=== PATIENT | female | born 1960 | race Caucasian/White ===

== ENCOUNTER 2016-06-09 16:20 | Emergency (ER) | payer OTHER ==
--- NOTE | ~2016-06-09 | CR211 ---
[facility] A Service of [facility] RADIOLOGY TEXT RESULTS PATIENT: IMELDA RODRIGUES LOCATION: [facility] : 60 UNIT #: [id number] AGE: [address]: Aide Wilder SEX: F ORDER DR: [id number] [facility] [address] [place], [place] [address] [id number] E MR#: [id number] Acc #: [id number] NAME: IMELDA RODRIGUES : 1960 SEX: F STUDY DATE/TIME: 06/09/2016 15:53 UNIT: [facility] ROOM: STUDY DESCRIPTION: CR Ribs Uni 2 View W PA Ch Rt Attending Physician: Aide Wilder P.A.-C. Ordering Physician: Aide Wilder P.A.-C. Primary Care Physician: Primary Care Physician No MEDICAL IMAGING REPORT This report is preliminary unless electronic signature is present EXAM Right rib series 06/09/2016 HISTORY Fall. Painful breathing. Bilateral hip pain. Bilateral lower extremity numbness and tingling. Fall down steps. TECHNIQUE AP radiograph of chest presented with AP and oblique views of the right ribs. FINDINGS Study is limited by poor radiographic technique and radiographic processing artifact overlying relevant anatomy on some images. No displaced rib fracture is seen. If the patient has ongoing symptoms, consider follow up imaging. The spinal structures seen on this examination are unremarkable. The heart and mediastinum are normal in size and contour. Lungs appear slightly hyperinflated. Correlate with any known history of underlying of chronic airway disease. There is some linear atelectasis or scarring at the lung bases, but no evidence of acute infectious or inflammatory disease. No pleural effusion or pneumothorax. No suspicious nodule. The visualized bowel gas pattern is normal. aortic atherosclerotic arterial calcifications are seen. Dictated by... Zac Barnett M.D. THIS IS AN ELECTRONICALLY VERIFIED REPORT Zac Barnett M.D. at 06/12/2016 6:09 PM JSK/to [facility] A Service of [facility] RADIOLOGY TEXT RESULTS PATIENT: IMELDA RODRIGUES [id number] : [birth year] UNIT #: [id number] AGE: [address]: Aide Wilder SEX: F ORDER DR: TD: 06/10/2016 12:04 JOB #: [id number] MEDICAL IMAGING REPORT Page 1 of 1 COPY
--- NOTE | ~2016-06-09 | CR181 ---
[facility] A Service of [facility] RADIOLOGY TEXT RESULTS PATIENT: IMELDA RODRIGUES LOCATION: [facility] : 60 UNIT #: [id number] AGE: [address]: Aide Wilder SEX: F ORDER DR: [id number] [facility] [address] [place], [place] [address] [id number] E MR#: [id number] Acc #: [id number] NAME: IMELDA RODRIGUES : 1960 SEX: F STUDY DATE/TIME: 06/09/2016 15:55 UNIT: [facility] ROOM: STUDY DESCRIPTION: CR Lumbar Spine 2 or 3 Views Attending Physician: Aide Wilder P.A.-C. Ordering Physician: Aide Wilder P.A.-C. Primary Care Physician: Primary Care Physician No MEDICAL IMAGING REPORT This report is preliminary unless electronic signature is present EXAM Lumbar spine series HISTORY Low-back pain after falling down the steps today, bilateral extremity numbness and tingling COMMENT AP lateral and lumbosacral views of the lumbar spine reviewed. COMPARISON [facility] FINDINGS Sagittal alignment is normal. Bones may be somewhat demineralized. Loss of intervertebral disc height present. Mild multiple levels and anterior plate spondylosis most apparent at L3-4. Facet arthritis most apparent L5-S1. No acute fracture or traumatic malalignment is suspected. Atherosclerotic vascular calcifications are present. IMPRESSION Lumbar degenerative changes but no acute fracture or traumatic malalignment suspected. Dictated by... Lulu Curiel M.D. THIS IS AN ELECTRONICALLY VERIFIED REPORT Lulu Curiel M.D. at 06/10/2016 3:08 PM SAC/to TD: 06/10/2016 11:47 JOB #: [id number] [facility] A Service [facility] RADIOLOGY TEXT RESULTS PATIENT: IMELDA RODRIGUES LOCATION: [facility] : 60 UNIT #: [id number] AGE: [address]: Aide Wilder SEX: F ORDER DR: MEDICAL IMAGING REPORT Page 1 of 1 COPY
--- NOTE | ~2016-06-09 | CR206 ---
[facility] A Service of [facility] RADIOLOGY TEXT RESULTS PATIENT: IMELDA RODRIGUES LOCATION: [facility] : 60 UNIT #: [id number] AGE: [address]: Aide Wilder SEX: F ORDER DR: [id number] [facility] [address] [place], [place] [address] [id number] E MR#: [id number] Acc #: [id number] NAME: IMELDA RODRIGUES : 1960 SEX: F STUDY DATE/TIME: 06/09/2016 15:56 UNIT: [facility] ROOM: STUDY DESCRIPTION: CR Pelvis 1 or 2 Views Attending Physician: Aide Wilder P.A.-C. Ordering Physician: Aide Wilder P.A.-C. Primary Care Physician: No Primary Care Physician MEDICAL IMAGING REPORT This report is preliminary unless electronic signature is present EXAM Pelvis 1 or 2 views HISTORY Painful breathing, bilateral hip pain, bilateral extremity numbness. Patient fell down stairs today. COMMENT A single frontal portable view of the pelvis timed 1556 on 06/09/2016 reviewed. The bones are demineralized. There is no acute fracture appreciated. Pelvis, lower sacrum obscured by bowel gas and stool. The hips are located and there is arthritis asymmetrically worse on the left than the right. If there is concern for the possibility of hip fracture, dedicated hip films should be obtained. This study is not performed to evaluate the hips well. IMPRESSION No pelvic fractures appreciated. Lower sacrum is obscured. Arthritis is noted in the bilateral hips, left greater than right. If there is concern for hip fracture, dedicated hip films should be obtained. This study does not exclude hip fracture. Dictated by... Lulu Curiel M.D. THIS IS AN ELECTRONICALLY VERIFIED REPORT Lulu Curiel M.D. at 06/10/2016 3:08 PM CITLALI/yumiko TD: 06/10/2016 12:41 [facility] A Service of [facility] RADIOLOGY TEXT RESULTS PATIENT: IMELDA RODRIGUES LOCATION: [facility] #: [id number] : 60 UNIT #: [id number] AGE: [address]: Aide Wilder SEX: F ORDER DR: JOB #: [id number] MEDICAL IMAGING REPORT Page 1 of 1 COPY
--- NOTE | ~2016-06-09 | CR243 ---
[facility] A Service [facility] RADIOLOGY TEXT RESULTS PATIENT: IMELDA RODRIGUES LOCATION: [facility] : 60 UNIT #: [id number] AGE: [address]: Aide Wilder SEX: F ORDER DR: [id number] [facility] [address] [place], [place] [address] [id number] E MR#: [id number] Acc #: [id number] NAME: IMELDA RODRIGUES : 1960 SEX: F STUDY DATE/TIME: 06/09/2016 15:54 UNIT: [facility] ROOM: STUDY DESCRIPTION: CR Thoracic Spine 3 Views Attending Physician: Aide Wilder P.A.-C. Ordering Physician: Aide Wilder P.A.-C. Primary Care Physician: Primary Care Physician No MEDICAL IMAGING REPORT This report is preliminary unless electronic signature is present EXAM Thoracic spine series 3 views HISTORY Painful breathing. Bilateral hip pain. Fell down the steps. Numbness and tingling in the lower extremities. Back pain. Mid and lower back pain. Bilateral lower extremity numbness and tingling. COMMENT AP, lateral and swimmer's views of the thoracic spine are viewed. COMPARISON There is a prior study from 04/10/2016 FINDINGS There is exaggeration of upper thoracic kyphosis with multiple level anterior endplate spondylosis. No acute fracture or traumatic malalignment is appreciated. IMPRESSION Thoracic degenerative changes, but no acute fracture or traumatic malalignment. Dictated by... Lulu Curiel M.D. THIS IS AN ELECTRONICALLY VERIFIED REPORT Lulu Curiel M.D. at 06/10/2016 3:08 PM SAC/to TD: 06/10/2016 11:44 [facility] A Service [facility] RADIOLOGY TEXT RESULTS PATIENT: IMELDA RODRIGUES LOCATION: [facility] : 60 UNIT #: [id number] AGE: [address]: Aide Wilder SEX: F ORDER DR: JOB #: [id number] MEDICAL IMAGING REPORT Page 1 of 1 COPY
[~2016-06-09 16:20] MED LIST: ALBUTEROL17 GM INH; ALBUTEROL20 ml; ALBUTEROL20 ml INH; AMITRIPTYLINE100 MG PO; AMITRYPTYLINE PO; AMOXICILLIN875 MG PO; ATENOLOL PO; BENZONATATE PO; CELEXA20 MG PO; CRESTOR40 MG PO; CYMBALTA PO; ECOTRIN325 MG; ECOTRIN81 M1 PO; FLEXERIL10 MG PO; GABAPENTIN600 MG PO; GLUCOPHAGE500 MG PO; HYDROCODON-ACE1 EAC7 PO; LOPID600 MG PO; MOBIC15 MG PO; NAPROSYN500 MG PO; NITROGLYGERIN0.4 MG SL; NITROQUICK0.4 MG SL; OCEAN45 ML; PHENERGAN PO; PRAVACHOL PO; RANITIDINE HCL300 M1; RANITIDINE HCL300 M1 PO; SYMBICORT80 INH; TIZANIDINE HCL4 M1 PO; VOLTAREN75 MG PO; XANAX0.5 MG PO; ZANAFLEX PO; ZANTAC300 MG PO; ZESTRIL40 MG PO; ZETIA PO; ZITHROMAX PO; ZITHROMAX1 G/PKT PO; [UNRECOGNIZED DRUG - OTHER] PO
[2016-07-03] MEDS ORDERED: CELEXA PO (12:39)
[2016-07-03] MEDS ORDERED: GLUCOPHAGE500 MG PO (12:40)
[2016-07-03] MEDS ORDERED: ZESTRIL40 MG PO (12:40)
[2016-07-03] MEDS ORDERED: AMITRIPTYLINE100 MG PO (12:40)
[2016-07-03] MEDS ORDERED: ZANTAC300 MG PO (12:40)
[2016-07-03] MEDS ORDERED: ZANAFLEX PO (12:41)
[2016-07-03] MEDS ORDERED: AMLODIPINE BESYL5 MG PO (12:41)
== END 2016-06-09 17:30 | disposition home or self-care (01) ==
LOC: CED 16:20
DX: S23.9XXA Sprain of unspecified parts of thorax, initial encounter (principal); S33.5XXA Sprain of ligaments of lumbar spine, initial encounter; I11.0 Hypertensive heart disease with heart failure; I50.9 Heart failure, unspecified; J44.9 Chronic obstructive pulmonary disease, unspecified; F41.9 Anxiety disorder, unspecified; E11.9 Type 2 diabetes mellitus without complications; F17.210 Nicotine dependence, cigarettes, uncomplicated; W10.9XXA Fall (on) (from) unspecified stairs and steps, initial encounter; Y92.009 Unspecified place in unspecified non-institutional (private) residence as the place of occurrence of the external cause
CPT/HCPCS: 71101; 72072; 72100; 72170; 96372; 99284; J1885

== ENCOUNTER 2016-07-03 12:56 | Emergency (ER) | payer OTHER ==
--- NOTE | ~2016-07-03 | EKG ---
PATIENT: IMELDA RODRIGUES UNIT #: [id number] Ventricular Rate: 98 BPM Atrial Rate: 98 BPM P-R Interval: 146 ms QRS Duration: 86 ms Q-T Interval: 356 ms QTC Calculation(Bezet): 454 ms P Gravel Switch: 65 degrees Calculated R Gravel Switch: 79 degrees Calculated T Gravel Switch: 49 degrees Diagnosis Line: Normal sinus rhythm Diagnosis Line: Normal ECG Diagnosis Line: When compared with ECG of 25-MAR-2015 10:12, Diagnosis Line: No significant change was found Diagnosis Line: Confirmed by MARYELLEN GAMING MD ([id number]) on 07/05/2016 Diagnosis Line: 12:01:49 PM INTERPRETING MD: AMBERLY GARIBAY
[~2016-07-03 12:56] MED LIST changes: +AMLODIPINE BESYL5 MG PO; +CELEXA PO
[2016-07-03 13:15] LABS: BASOPHIL# 0.1 X10e3 (0-0.3); HEMATOCRIT 37.7 % (35.0-45.0); LYMPHOCYTE# 3.7 X10e3 (1.0-3.5); NEUTROPHIL% 48.2 % (40-75)
[2016-07-03 13:18] LABS: BASOPHIL% 0.8 % (0-2.5); DIFF IND NO; EOSINOPHIL# 0.2 X10e3 (0-0.7); EOSINOPHIL% 1.8 % (0.0-7.0); HEMOGLOBIN 12.7 gm/dL (12.0-16.0); LYMPHOCYTE% 40.9 % (17.0-45.0); MEAN CELL VOLUME 91.2 FL (83-96); MEAN CORPUSCULAR HEMOGLOBIN 30.6 PG (28-34); MEAN CORPUSCULAR HGB CONC 33.6 g/dL (30-36); MEAN PLATELET VOLUME 8.2 FL (6.5-11.5); MONOCYTE# 0.8 X10e3 (0-1.0); MONOCYTE% 8.3 % (3.0-12.0); NEUTROPHIL# 4.4 X10e3 (1.5-7.1); PLATELET COUNT 240 X10e3 (140-420); RED BLOOD COUNT 4.13 X10e (3.90-5.30); RED CELL DISTRIBUTION WIDTH 13.9 % (11.0-15.5); WHITE BLOOD COUNT 9.1 X10e3 (4.0-10.5)
[2016-07-03 13:33] LABS: ALBUMIN SERUM 4.1 g/dL (3.5-5.0); ALKALINE PHOSPHATASE 100 U/L (32-92); ALT (SGPT) 19 U/L (10-40); AMYLASE 29 U/L (0-46); AST (SGOT) 19 U/L (10-42); BILIRUBIN,TOTAL 0.1 mg/dL (0.2-2.0); BLOOD UREA NITROGEN 18 mg/dL (9-23); CALCIUM SERUM 8.6 mg/dL (8.4-10.2); CARBON DIOXIDE 24 mmol/L (22-31); CHLORIDE 103 mmol/L (100-111); GLOM FILT RATE Estimated 63.4 mL/min (>60); GLUCOSE FASTING 98 mg/dL (70-110); LIPASE 44 U/L (22-51); POTASSIUM 3.6 mmol/L (3.5-5.1); PROTEIN TOTAL SERUM 7.1 g/dL (6.0-8.3); SODIUM 132 mmol/L (135-145)
[2016-07-03 13:42] LABS: BILIRUBIN, DIRECT <0.1 mg/dL (0.0-0.2)
== END 2016-07-03 14:18 | disposition home or self-care (01) ==
LOC: SED 12:56
PROVIDERS: Emergency Medicine
DX: K21.9 Gastro-esophageal reflux disease without esophagitis (principal); F17.200 Nicotine dependence, unspecified, uncomplicated; J44.9 Chronic obstructive pulmonary disease, unspecified; F41.9 Anxiety disorder, unspecified
CPT/HCPCS: 36415; 80048; 80076; 82150; 83690; 85025; 86677; 93005; 96374; 96375; 99284; C9113; J2405

== ENCOUNTER 2016-08-29 08:56 | Inpatient (IN) | payer OTHER ==
--- NOTE | ~2016-08-29 | DS ---
Unit #: [id number] #: [id number] Patient: IMELDA RODRIGUES [id number] [address] [address] [id number] I MR#: [id number] NAME: IMELDA RODRIGUES ROOM: 571 Age: 55 Sex: F Admission Date: 08/29/2016 : 1960 Discharge Date: 09/01/2016 Attending Physician: Medina Weldon M.D. Primary Care Physician: Royer Clarke M.D. DISCHARGE SUMMARY DIAGNOSIS ON ADMISSION Acute biliary cholic. DIAGNOSES ON DISCHARGE 1. Acute cholecystitis status post laparoscopic cholecystectomy. 2. Choledocholithiasis status post stone extraction via endoscopic retrograde cholangiopancreatography. 3. Hypertension. 4. Type 2 diabetes mellitus. 5. Coronary artery disease. 6. Acute pancreatitis, improved. 7. Chronic obstructive pulmonary disease. 8. Hyperlipidemia. 9. Anxiety disorder. 10. Depression. 11. Acute Escherichia coli urinary tract infection. CONSULTATIONS 1. Dr. Coronel in GI consultation. 2. Dr. Rondon and in surgical consultation. PROCEDURES DONE The patient had an ERCP done, which revealed on EGD mild esophagitis, small hiatal hernia. The patient had significantly dilated biliary duct, which was filled up with large stones, and a sphincterotomy was performed and several stones were extracted using lithotripsy. DIAGNOSTIC STUDIES LABS: The patient's creatinine is 0.6, sodium 140, potassium 4.2. The patient's AST is 33. ALT is 134. Amylase is 299, and lipase is 294, which is better than yesterday. The patient's WBC is 9.3, hemoglobin 12.6, platelet count 199. Urine culture revealed acute E-coli. The patient's troponin was negative. CARDIOVASCULAR: The patient had a two-D echocardiogram done, which revealed ejection fraction of 55%, and there was mild tricuspid regurgitation present. HOSPITAL COURSE This 55-year-old female was admitted to [facility] with abdominal pain. Details are as per admission H and P. Common bile duct stones. The patient was seen by Dr. Coronel in consultation who saw the patient in consultation and performed an ERCP and removed Unit #: [id number] #: [id number] Patient: IMELDA RODRIGUES stones using lithotripsy. Acute cholecystitis. The patient had laparoscopic cholecystectomy done, which she tolerated well. Acute E-coli UTI. The patient was treated with antibiotics. PHYSICAL EXAMINATION GENERAL: Today, the patient is comfortable, feels better, wants to go home. VITAL SIGNS: Vital signs reveal temperature of 98.6, pulse 68 per minute, respiratory rate 16 per minute and blood pressure 133/65. HEENT: Examination revealed no conjunctival congestion. Sclera is nonicteric. NECK: Neck is supple. Trachea is central. RESPIRATORY: Examination revealed breath sounds equal bilaterally. There are no wheezes or crackles. HEART: Regular rate and rhythm. S1, S2. ABDOMEN: Abdomen is soft. There is mild tenderness present. Bowel sounds are present. SKIN: Skin is warm and dry. RECOMMENDATIONS ON DISCHARGE 1. Condition is stable. 2. Activity is as tolerated. DISCHARGE MEDICATIONS 1. Amitriptyline 100 mg p.o. q.h.s. The patient wants to continue it. It is a home medication. 2. Celexa 20 mg p.o. daily. 3. Glucophage 500 mg p.o. daily. The patient was advised to restart in 3 days. 4. Norvasc 5 mg p.o. daily. 5. Lisinopril 40 mg p.o. daily. 6. Zantac 300 mg p.o. b.i.d. 7. Zanaflex 4 mg p.o. t.i.d. p.r.n. 8. Omnicef 300 mg p.o. b.i.d. for 5 days for UTI. 9. Hydrocodone/[place] 5/325 mg 1 p.o. q.8 hours p.r.n. pain (#15 were written). PLAN/FOLLOWUP 1. The patient is advised to follow up with primary care physician in 1 week. 2. The patient is advised to follow up with Dr. Coronel and Dr. Minor as recommended. 3. The plan was discussed with Dr. Coronel who recommended patient should follow up with him in 2 weeks. 4. The patient is advised to follow up with [facility] in 1-2 weeks. 5. The patient was advised to call primary care physician or go to ER if her condition changes. NOTE: The plan was discussed in detail with the patient and family, and they showed complete understanding. Dictated by... Unit #: [id number] #: [id number] Patient: IMELDA RODRIGUES M.D. MB/db TD: 09/01/2016 11:35 JOB #: [id number] CC: Ross Coronel M.D. DISCHARGE SUMMARY Page 1 of 1 X Medina Weldon MD X DISCHARGE SUMMARY
--- NOTE | ~2016-08-29 | EKG ---
PATIENT: IMELDA RODRIGUES UNIT #: [id number] Ventricular Rate: 70 BPM Atrial Rate: 70 BPM P-R Interval: 154 ms QRS Duration: 86 ms Q-T Interval: 384 ms QTC Calculation(Bezet): 414 ms P [place]: 71 degrees Calculated R [place]: 86 degrees Calculated T [place]: 46 degrees Diagnosis Line: Normal sinus rhythm Diagnosis Line: Normal ECG Diagnosis Line: When compared with ECG of 29-AUG-2016 09:27, Diagnosis Line: No significant change was found Diagnosis Line: Confirmed by JUSTIN CONTRERAS MD ([id number]) on Diagnosis Line: 09/01/2016 2:50:59 PM INTERPRETING MD: JUNIOR
--- NOTE | ~2016-08-29 | CO ---
Unit #: [id number] #: [id number] Patient: IMELDA LOYOLA [id number] [address] [place], [place] [address] [id number] Juliana MR#: [id number] NAME: IMELDA LOYOLA. ROOM: 571 Age: 55 Sex: F Admission Date: 08/29/2016 : 1960 Attending Physician: Medina Weldon M.D. Primary Care Physician: Royer Clarke M.D. Consultation Date: 08/30/2016 CONSULTATION REPORT REASON FOR CONSULTATION Choledocholithiasis. HISTORY OF PRESENTING ILLNESS Ms. Loyola is a 55-year-old pleasant lady, was admitted with complaints of pain in the right flank and right back. It started yesterday, which is severe, associated with nausea and vomiting. No fever. No chills. She has not had similar pain in the past. She denies any injuries. Initial lab work shows abnormal LFTs. CT scan shows bile duct stones as well as gallbladder stones along with dilated bile duct. I was consulted for possible ERCP. PAST MEDICAL HISTORY Significant for type 2 diabetes mellitus, hypertension, coronary artery disease, and COPD. SOCIAL HISTORY Smoker. Denies alcohol. FAMILY HISTORY No history of colon cancer. ALLERGIES None. MEDICATIONS Medications at home include Celexa, lisinopril,Glucophage, Zantac, Elavil, Zanaflex, and Norvasc. REVIEW OF SYSTEMS Complete 10-point review of systems was done, which is unremarkable other than as mentioned above. PHYSICAL EXAMINATION VITAL SIGNS: Stable. Afebrile. Mild pain. Temperature 98.3, pulse 117, respirations 18, and blood pressure 127/81. HEENT: Pupils are equal and reactive. No icterus. Oral mucosa moist. NECK: No JVD. No lymphadenopathy. CHEST: Clear to auscultation bilaterally. CARDIOVASCULAR: Regular rate and rhythm. No murmurs. ABDOMEN: Mildly tender in the right upper quadrant and right flank area. No guarding. No rebound. EXTREMITIES: Without clubbing, cyanosis, or edema. NEUROLOGIC: Intact. Unit #: [id number] #: [id number] Patient: IMELDA LOYOLA SKIN: Warm and dry. DIAGNOSTIC STUDIES White count is normal. CBC unremarkable otherwise. Chemistries showed a sodium of 132, AST of 302, ALT of 362, and alkaline phosphatase elevated at 380. Bilirubin was normal. Amylase and lipase were normal. CT scan shows evidence of gallbladder stones as was bile duct stones. Bile duct was dilated at 1.6 cm on the ultrasound. ASSESSMENT AND PLAN The patient with biliary ductal stones along with dilated duct, suggest obstruction. Normal LFTs consistent with the same. She will need an ERCP and removal of the stones. Afterwards, she will need laparoscopic cholecystectomy. I discussed at length with the procedure with her along with complication including pancreatitis. She is agreeable and wants to ahead. I discussed the case also with Dr. Marroquin and she was okay for me to proceed with the procedure. In the meantime, we are going to keep her on IV antibiotics and IV fluids as well as pain medications for symptomatic control. Thank you, Dr. Adler, for this interesting consult. We will follow along. Dictated by... Gemini Butterfield/yadi TD: 08/30/2016 19:07 JOB #: [id number] CONSULTATION REPORT Page 1 of 1 X Ross Coronel MD X CONSULTATION REPORT
--- NOTE | ~2016-08-29 | OR ---
Unit #: [id number] #: [id number] Patient: IMELDA RODRIGUES [id number] [address] [place], [place] [address] [id number] Juliana MR#: [id number] NAME: IMELDA RODRIGUES. ROOM: 571 Date of Procedure: 08/31/2016 Admission Date: 08/29/2016 Surgeon: Pepe Minor III, M.D. : 1960 Attending Physician: Medina Weldon M.D. Primary Care Physician: Royer Clarke M.D. OPERATIVE REPORT PREOPERATIVE DIAGNOSES History of common bile duct stones and chronic cholecystitis with gallstones. POSTOPERATIVE DIAGNOSES History of common bile duct stones and chronic cholecystitis with gallstones. PROCEDURE PERFORMED Laparoscopic cholecystectomy. ANESTHESIA General. SPECIMENS Gallbladder to Pathology. COMPLICATIONS None apparent. ESTIMATED BLOOD LOSS Minimal. INDICATIONS FOR PROCEDURE This is a 55-year-old lady, who has a history of choledocholithiasis and underwent ERCP yesterday with stent placement and removal of stones. She is here today for laparoscopic cholecystectomy. DESCRIPTION OF PROCEDURE After consent was obtained, the patient was brought to the operating room and placed in the supine position. General anesthetic was administered and her abdomen was prepped and draped in standard surgical fashion. I made a 5-mm incision in the right upper quadrant. I used an Optiview to enter into the peritoneal cavity without any difficulty. CO2 pneumoperitoneum was then established. Next, a second 5-mm port was placed in the infraumbilical region and an 11-mm port was placed in the epigastric region and a third 5-mm port was placed in the right lateral subcostal region. I began by retracting the gallbladder superiorly and laterally. I was able to dissect out the cystic duct which was grossly enlarged. It was over a centimeter in diameter. Once I had this confirmed and fully dissected out, I did realize that there was no way a clip was going to go across there. I replaced the 11-mm port with a 12-mm Unit #: [id number] #: [id number] Patient: IMELDA RODRIGUES port and used a laparoscopic LEILANI stapler to divide the cystic duct. Again, I was confident this was a cystic duct, because of her history of a dilated common bile duct and the fact that she had a stent across the common bile duct as well. Once the cystic duct was divided, I then ligated the cystic artery and took the gallbladder off the liver bed without any spillage of bile. The gallbladder was extracted through the epigastric port site without dilatation of the fascia. I had excellent hemostasis and all needle, sponge, and instrument counts were correct x2. I then used a neoClose device to reapproximate the fascia at the epigastric port site and all the incisions were injected with 0.25% plain Marcaine. The ports were removed. Pneumoperitoneum was released and the incisions were reapproximated with interrupted 4-0 Vicryl subcuticular suture. Steri-Strips were then applied. The patient tolerated the procedure without any problems and returned to the recovery room in stable condition. Dictated by... Pepe Minor III, M.D. VCL/yadi TD: 08/31/2016 15:45 JOB #: [id number] OPERATIVE REPORT Page 1 of 1 X Pepe Minor III, MD PROCEDURE OPERATIVE NOTE
--- NOTE | ~2016-08-29 | CO ---
Unit #: [id number] #: [id number] Patient: IMELDA RODRIGUES [id number] [facility]. [address] [place], [place] [address] [id number] MR#: [id number] NAME: IMELDA RODRIGUES. ROOM: 571 Age: 55 Sex: F Admission Date: 08/29/2016 : 1960 Attending Physician: Medina Weldon M.D. Primary Care Physician: Royer Clarke M.D. Consultation Date: 08/30/2016 CONSULTATION REPORT REASON FOR CONSULTATION Coronary artery disease. HISTORY OF PRESENT ILLNESS This is a 55-year-old female, seen in the past by Dr. Cazares when she underwent a cardiac cath in 2007, which showed single vessel coronary artery disease at posterior LV branch, 95% occlusion, RCA 20% to 30%, and normal left main LAD and circumflex artery. She also has a history of diabetes mellitus, hypertension, hyperlipidemia, unstable angina, COPD, anxiety, depression, and tobacco abuse. She was at work yesterday when she experienced severe stabbing right flank pain. She presented to the ER and was found to have elevated LFTs. After multiple imaging studies, she was found to have common bile duct stones and cholecystitis. She reports frequent exertional chest discomfort occurring one or two times a month. She has sharp pains in her left chest with dizziness that are aggravated by anxiety or activity. They resolved with rest and nitroglycerin. She currently is chest pain free. PAST MEDICAL HISTORY 1. Single vessel coronary artery disease, posterior LV branch. 2. Cardiac cath in 2007 showed posterior LV branch 95% at origin with distal normal, RCA 20% to 30%, left main normal, LAD normal, left circumflex normal. 3. Abnormal Cardiolite exercise stress test in 2007. 4. Diabetes. 5. Hypertension. 6. Hyperlipidemia. 7. COPD. 8. Anxiety. 9. Depression. 10. Tobacco abuse. PAST SURGICAL HISTORY She had a hysterectomy, x4, and sinus surgery. FAMILY HISTORY Denies family history of premature coronary artery disease. SOCIAL HISTORY She denies alcohol or illicit drug use. She smokes 2 to 3 cigarettes per day since she was 7 years old. Unit #: [id number] #: [id number] Patient: IMELDA RODRIGUES ALLERGIES No known drug allergies. HOME MEDICATIONS 1. Celexa 20 mg p.o. daily. 2. Zestril 40 mg p.o. daily. 3. Glucophage 500 mg p.o. daily. 4. Zantac 300 mg p.o. twice a day. 5. Amitriptyline 100 mg p.o. daily. 6. Zanaflex 4 mg p.o. three times a day as needed for muscle spasm. 7. Amlodipine 5 mg p.o. daily. REVIEW OF SYSTEMS Positive for intermittent left chest pain, dizziness, anxiety, and right flank pain. Otherwise negative except for what was stated in HPI. PHYSICAL EXAMINATION VITAL SIGNS: Temperature 98.2, heart rate 79, respiratory rate 18, blood pressure 126/68, height 67 inches, and weight 87 kg. GENERAL: This is a 55-year-old female, resting in bed, in no acute distress. HEENT: Head is atraumatic and normocephalic. Pupils are equal and round. Mucous membranes are moist. NECK: Supple. Trachea is midline. Negative for JVD. LUNGS: Clear to auscultation. Nonlabored respirations. CARDIOVASCULAR: S1 and S2. Regular rate and rhythm. No significant murmurs, rubs, or gallops. ABDOMEN: Soft, nontender, and nondistended. EXTREMITIES: Pulses are palpable. No pedal edema. No cyanosis. NEUROLOGIC: Alert and oriented x3. Moves all extremities equally and follows commands without difficulty. DIAGNOSTIC STUDIES LABORATORY RESULTS: Sodium 140, potassium 4.3, chloride 111, BUN 10, creatinine 0.7, glucose 90, AST 113, ALT 257, alk phos 298, amylase 23, lipase 19. Hemoglobin 12.9, hematocrit 39.3, platelets 197, and white blood cell count 5.3. Point of care troponin is less than 0.05. PT 11, INR 1, and PTT 23.3. IMAGING STUDIES: CT of the abdomen and pelvis showed cholelithiasis with distention of gallbladder. Ultrasound of the gallbladder showed multiple stones in the common bile duct with common hepatic duct dilation, and cholelithiasis. CT of the chest showed no pulmonary embolism. Small pleb seen at right apex and mild basilar fibrosis or atelectasis. CARDIOVASCULAR STUDIES: EKG shows normal sinus rhythm with ventricular rate of 90 and nonspecific T-wave abnormalities. ASSESSMENT 1. Common bile duct stones. 2. Cholecystitis. 3. Angina pectoris. 4. Single vessel coronary artery disease at posterior LV branch. 5. Diabetes mellitus. 6. Hypertension. Unit #: [id number] #: [id number] Patient: IMELDA RODRIGUES 7. Hyperlipidemia. 8. Chronic obstructive pulmonary disease. 9. Anxiety and depression. 10. Tobacco abuse. PLAN 1. We will start beta-yissel. Discontinue calcium channel yissel and YULIANA. Obtain 2D echo stat. 2. Discuss with Dr. Marroquin and discuss with Dr. Coronel. This patient needs ERCP stat. We will clear the patient for the procedure at moderate, but acceptable risk. Discuss cardiac risk with the patient. 3. Plan for further ischemic workup once recovered. Thank you for asking us to see this patient. We appreciate the consult. Dictated by... Sheyla Moulton APRN for [facility] Meredith/yadi TD: 08/31/2016 11:10 JOB #: [id number] CONSULTATION REPORT Page 1 of 1 X X CONSULTATION REPORT
--- NOTE | ~2016-08-29 | CR84 ---
[facility] A Service of [facility] & [facility] RADIOLOGY TEXT RESULTS PATIENT: IMELDA RODRIGUES LOCATION: [facility] 57- : 60 UNIT #: [id number] AGE: [address]: Medina Weldon MD SEX: F ORDER DR: [id number] [facility] [address] [facility] [facility]. [place], [place] [address] [id number] MR#: [id number] Acc #: [id number] NAME: IMELDA RODRIGUES : 1960 SEX: F STUDY DATE/TIME: 08/30/2016 10:21 UNIT: [facility] ROOM: [facility] STUDY DESCRIPTION: CR ERCP Biliary and Pancr SI Attending Physician: Medina Weldon M.D. Ordering Physician: Ross Coronel M.D. Primary Care Physician: Royer Clarke M.D. MEDICAL IMAGING REPORT This report is preliminary unless electronic signature is present EXAM ERCP HISTORY Common bile duct stones. TECHNIQUE A total of 8 overhead spot films were obtained documenting retrograde injection of the pancreatic duct and common bile duct. Fluoroscopy time documented at 17.5 minutes. Please see the endoscopist notes for full details of the procedure. Dictated by... Zachary Rodrigues M.D. THIS IS AN ELECTRONICALLY VERIFIED REPORT Zachary Rodrigues M.D. at 09/05/2016 7:10 AM RLF/jori TD: 08/30/2016 23:06 JOB #: [id number] MEDICAL IMAGING REPORT Page 1 of 1 COPY
--- NOTE | ~2016-08-29 | CT4 ---
[facility] A Service of [facility] & [facility] RADIOLOGY TEXT RESULTS PATIENT: IMELDA RODRIGUES LOCATION: [place] [address] : 60 UNIT #: [id number] AGE: [address]: Medina Weldon MD SEX: F ORDER DR: [id number] [address] [address] [id number] E MR#: [id number] Acc #: [id number] NAME: IMELDA RODRIGUES : 1960 SEX: F STUDY DATE/TIME: 08/29/2016 9:42 UNIT: SED ROOM: STUDY DESCRIPTION: CT Abd and Pelv Wo Cont Attending Physician: Remy Burnette M.D. Ordering Physician: Remy Burnette M.D. Primary Care Physician: Royer Clarke M.D. MEDICAL IMAGING REPORT This report is preliminary unless electronic signature is present. EXAM CT of the abdomen pelvis without contrast media. HISTORY Right flank, right upper quadrant pain beginning this morning. TECHNIQUE Axial imaging of the abdomen and pelvis was performed without contrast media. This CT exam was performed with one or more of the following radiation dose reduction techniques: Automatic exposure control, adjustment of mA and/or kV according to patient size, and iterative reconstruction. FINDINGS Scans through the lung bases show underlying COPD. Scans through the liver parenchyma are normal. Spleen is normal. There are multiple gallstones within the gallbladder. Pancreas is normal. Adrenal glands are normal. The right kidney is normal with no hydronephrosis or hydroureter. On the left, there is an exophytic left renal lesion measuring 1.6 cm in diameter consistent with a simple cyst. There is no evidence of renal stones or hydronephrosis. No dilated or thickened loops of bowel are identified. The adrenal glands are normal. There is atherosclerotic disease in the aorta and iliac vessels. The appendix is not identified and may have been removed. The patient has had a hysterectomy. No pelvic masses or fluid collections are seen. CONCLUSION 1. Cholelithiasis with distension of the gallbladder. 2. Incidental 1.6 cm left renal cyst. 3. Postop changes of hysterectomy and likely appendectomy. 4. No acute findings. 1. [facility]. [facility] A Service of [facility] & [facility] RADIOLOGY TEXT RESULTS PATIENT: IMELDA RODRIGUES LOCATION: [facility] 571-01 : 60 UNIT #: [id number] AGE: [address]: Medina Weldon MD SEX: F ORDER DR: Dictated by... Zac Felipe M.D. THIS IS AN ELECTRONICALLY VERIFIED REPORT Zac Felipe M.D. at 08/30/2016 3:21 PM QIAN/joyce TD: 08/29/2016 12:30 JOB #: [id number] MEDICAL IMAGING REPORT Page 1 of 1
--- NOTE | ~2016-08-29 | EKG ---
PATIENT: IMELDA RODRIGUES UNIT #: [id number] Ventricular Rate: 90 BPM Atrial Rate: 90 BPM P-R Interval: 136 ms QRS Duration: 76 ms Q-T Interval: 348 ms QTC Calculation(Bezet): 425 ms P [place]: 81 degrees Calculated R [place]: 84 degrees Calculated T [place]: 58 degrees Diagnosis Line: Normal sinus rhythm Diagnosis Line: Normal ECG Diagnosis Line: When compared with ECG of 03-JUL-2016 12:48, Diagnosis Line: No significant change was found Diagnosis Line: Confirmed by EVELIO BURNETTE MD ([id number]) on Diagnosis Line: 08/30/2016 4:45:56 PM INTERPRETING MD: YOMAIRA GARIBAY
--- NOTE | ~2016-08-29 | CO ---
Unit #: [id number] #: [id number] Patient: IMELDA RODRIGUES [id number] [address] [place], [place] [address] [id number] I MR#: [id number] NAME: IMELDA RODRIGUES. ROOM: 571 Age: 55 Sex: F Admission Date: 08/29/2016 : 1960 Attending Physician: Medina Weldon M.D. Primary Care Physician: Royer Clarke M.D. Consultation Date: 08/30/2016 CONSULTATION REPORT CHIEF COMPLAINT Right flank pain. HISTORY OF PRESENT ILLNESS This is a 55-year-old lady, who has had sudden onset of acute right flank and back pain that started 24 hours ago. It was a 10/10 at that time. It was associated with nausea, but no vomiting. She has not had any prior episodes. PAST MEDICAL HISTORY Significant for coronary artery disease, congestive heart failure, COPD, depression, and diabetes. MEDICATIONS Please see med rec list for list of medications. PAST SURGICAL HISTORY She has undergone five C-sections, hysterectomy, and sinus surgery. ALLERGIES She has no known drug allergies. SOCIAL HISTORY She does smoke. She denies any alcohol use. FAMILY HISTORY Significant for colon cancer in her mom and dad. REVIEW OF SYSTEMS Negative for fevers, weight loss, or jaundice and is otherwise as above. PHYSICAL EXAMINATION VITAL SIGNS: Temperature is 98.2, heart rate 79, respiratory rate is 18, blood pressure is 126/68. BMI is 28. GENERAL: She is in no acute distress. HEENT: Pupils are equal and reactive to light and accommodation. Her extraocular muscles are intact. NECK: Without masses or bruits. LUNGS: Show good breath sounds bilaterally with equal air exchange. CARDIAC: Shows regular rate and rhythm without murmur. ABDOMEN: Soft, nontender, nondistended with no organomegaly. EXTREMITIES: Without edema or cyanosis. NEUROLOGIC: She is alert and oriented. There are no focal deficits. Unit #: [id number] #: [id number] Patient: IMELDA RODRIGUES DIAGNOSTIC STUDIES LABORATORY RESULTS: White blood count is normal, hemoglobin is 12.9. Total bilirubin is 0.8, but she has elevation of her alkaline phosphatase at 380, AST is 302, and ALT is 362. IMAGING STUDIES: CT scan showed gallstones and ultrasound of the gallbladder showed multiple stones in the common bile duct with dilatation up to 1.6 cm and mild gallbladder wall thickening. OVERALL IMPRESSION This is a 55-year-old lady, who has common bile duct stones with cholecystitis. Hopefully, she will undergo endoscopic retrograde cholangiopancreatography today and laparoscopic cholecystectomy in the morning. Gastrointestinal has already been consulted and Cardiology has also been seen for preoperative clearance. Dictated by... Pepe Minor III, M.D. VCL/yadi TD: 09/27/2016 01:52 JOB #: [id number] CONSULTATION REPORT Page 1 of 1 X Pepe Minor III, MD CONSULTATION REPORT
--- NOTE | ~2016-08-29 | HP ---
Unit #: [id number] #: [id number] Patient: IMELDA RODRIGUES [id number] [address] [place], [place] [address] [id number] I MR#: [id number] NAME: IMELDA RODRIGUES. ROOM: 571 Age: 55 Sex: F Admission Date: 08/29/2016 : 1960 Attending Physician: Vania Benitez M.D. Primary Care Physician: Royer Clarke M.D. HISTORY AND PHYSICAL CHIEF COMPLAINT Choledocholithiasis and cholecystitis. HISTORY OF PRESENT ILLNESS This 55-year-old female with hypertension, AODM, CAD, COPD, was transferred from [facility] Emergency Department for right flank pain, and found to have choledocholithiasis and cholecystitis. The patient was well until this morning when she began to experience intractable right flank pain with a somewhat pleuritic component. Denies other symptoms with the above. She went to [facility] ER around 9 a.m. this morning and LFT's were noted to be elevated. Multiple imaging studies were performed, and the patient was found to have cholelithiasis with distension of the gallbladder on CT scan. an ultrasound was performed showing multiple stones in the common bile duct along with cholelithiasis. The gallbladder was mildly thickened, possibly representing acute versus chronic cholecystitis. In the ER the patient was bolused with IV fluids, given Toradol, Zofran, Dilaudid and Zosyn. She currently is experience quite a bit of right flank pain. PAST MEDICAL HISTORY 1. GERD. 2. AODM. 3. Hypertension. 4. COPD. 5. Anxiety and depression. 6. Insomnia. 7. Hyperlipidemia. 8. CAD. Cardiac catheterization 2007 revealed 20% to 30% RCA lesion. Posterior left ventricular branch was 95% occluded. The patient states that she requires Nitroglycerine about twice a month for chest pain. She has poor exercising capability and is unable to climb flights of stairs due to shortness of breath. 9. Five C0-sections. 10. Hysterectomy. 11. Sinus surgery. SOCIAL HISTORY The patient lives alone. She smokes 3 to 4 cigarettes on a daily basis, does not drink alcohol. FAMILY HISTORY Hypertension CAD Unit #: [id number] #: [id number] Patient: IMELDA RODRIGUES Diabetes mellitus. ALLERGIES No known drug allergies. MEDICATIONS Celexa 20 mg daily. Lisinopril 40 mg daily. Glucophage 500 mg daily. Zantac 300 mg b.i.d. Elavil 100 mg q h.s. Zanaflex 4 mg t.i.d. Norvasc 5 mg daily. REVIEW OF SYSTEMS Notable for right flank pain, GERD, AODM, hypertension, COPD, tobacco use, anxiety, depression, hyperlipidemia, CAD, diabetes, above mentioned surgeries. All other systems were reviewed and are otherwise negative. PHYSICAL EXAMINATION GENERAL APPEARANCE: Pleasant uncomfortable appearing mildly obese 55-year-old female. VITAL SIGNS: Temp 98.3, pulse 117, respirations 18, B/P 127/81. HEENT: Eyes - PERRLA, extraocular movements intact. Pharynx is benign. Dentures are in place. NECK: Neck is supple without adenopathy or thyromegaly. CHEST: Chest is clear. Back with right CVA percussion tenderness. HEART: Normal S1 and S2, soft systolic murmur. ABDOMEN: Bowel sounds are present. Epigastric tenderness noted on exam. No masses or hepatosplenomegaly. EXTREMITIES: Without CC or E. Pedal pulses are somewhat diminished. NEUROLOGIC: The patient is awake, alert, oriented. Cranial nerves are intact, equal strength throughout. DIAGNOSTIC STUDIES LABORATORY: Hematocrit 41.9, normal white count, platelet count. SMA 12 - sodium 132, C02 of 20, AST of 302, ALT 362, alkaline phos 380 with a normal bilirubin. Normal lipase. D-dimer mildly elevated at 250. Urinalysis, leukocyte esterase and blood positive with 10 to 25 white cells, 1+ bacteria. A few squamous cells seen. IMAGING: CT scan shows cholelithiasis with distension of the gallbladder, left renal cyst, postop changes of hysterectomy and likely appendectomy. Gallbladder ultrasound - multiple stones within the common bile duct with common bile duct dilatation of 1.6 cm. Cholelithiasis. Gallbladder wall is mildly thickened which could represent acute or chronic cholecystitis. CTA of the chest negative for PE. Small blebs seen at the right apex, mild basilar fibrosis or atelectasis noted. CARDIOVASCULAR: EKG - normal sinus rhythm, rate 90, normal appearing. ASSESSMENT 1. Choledocholithiasis with cholecystitis either acute or chronic. 2. COPD. 3. CAD. 4. Hypertension. 5. AODM. 6. Major depressive disorder. Unit #: [id number] #: [id number] Patient: IMELDA RODRIGUES 7. Possible UTI. PLAN 1. Continue Zosyn. 2. IV fluids and supportive treatment. 3. Sliding scale insulin and hold Glucophage. 4. Low dose Nitro paste and ask cardiology to follow as the patient will need an ERCP and possibly cholecystectomy. 5. and [facility] to see. 6. SCDs for DVT prophylaxis. Dictated by Gemini Mayes/sheeba TD: 08/29/2016 23:26 JOB #: [id number] HISTORY AND PHYSICAL Page 1 of 1 X Ada Adler MD X HISTORY AND PHYSICAL
--- NOTE | ~2016-08-29 | US67 ---
[facility] A Service [facility] RADIOLOGY TEXT RESULTS PATIENT: IMELDA RODRIGUES LOCATION: [place] [address] : 60 UNIT #: [id number] AGE: [address]: Medina Welodn MD SEX: F ORDER DR: [id number] [address] [address] [id number] E MR#: [id number] Acc #: [id number] NAME: IMELDA RODRIGUES : 1960 SEX: F STUDY DATE/TIME: 08/29/2016 10:18 UNIT: SED ROOM: STUDY DESCRIPTION: US Gallbladder Attending Physician: Remy Burnette M.D. Ordering Physician: Remy Burnette M.D. Primary Care Physician: Royer Clarke M.D. MEDICAL IMAGING REPORT This report is preliminary unless electronic signature is present. EXAM Gallbladder ultrasound DATE 08/29/2016 HISTORY Right back pain today, worse since this morning. COMPARISON CT abdomen and pelvis without contrast 08/29/2016 FINDINGS The pancreas has an unremarkable sonographic appearance. Liver size is normal, 17.7 cm, with homogeneous echotexture and without focal or suspicious abnormality. Intrahepatic IVC has a normal singh-scale appearance. No ascites is identified. Right kidney measures 10.1 cm in length without focal cortical lesion, shadowing stone or hydronephrosis. Multiple echogenic shadowing gallstones are present. The gallbladder wall is mildly thickened measuring up to 5-6 mm, and acute or chronic cholecystitis cannot be excluded. There are multiple stones within the CBD, and the common hepatic duct is dilated up to 1.6 cm. Intrahepatic bile ducts are not appreciably dilated on this exam. IMPRESSION 1. Multiple stones are seen with the common bile duct with the common hepatic duct dilation up to 1.6 cm. ERCP is recommended at this time for both diagnostic and therapeutic purposes. 2. Cholelithiasis. The gallbladder wall is mildly thickened which could represent changes of acute or chronic cholecystitis in the [facility] A Service [facility] RADIOLOGY TEXT RESULTS PATIENT: IMELDA RODRIGUES LOCATION: [facility] 571-01 : 60 UNIT #: [id number] AGE: [address]: Medina Weldon MD SEX: F ORDER DR: appropriate clinical context. 3. The remainder of examination is within normal limits. Dictated by... Rosalva Sethi M.D. THIS IS AN ELECTRONICALLY VERIFIED REPORT Rosalva Sethi M.D. at 08/30/2016 8:35 AM [facility]/rob TD: 08/29/2016 13:28 JOB #: [id number] MEDICAL IMAGING REPORT Page 1 of 1
--- NOTE | ~2016-08-29 | CT16 ---
[facility] A Service [facility] RADIOLOGY TEXT RESULTS PATIENT: IMELDA RODRIGUES LOCATION: [facility] 571-01 : 60 UNIT #: [id number] AGE: [address]: Medina Weldon MD SEX: F ORDER DR: [id number] [address] [address] [id number] E MR#: [id number] Acc #: [id number] NAME: IMELDA RODRIGUES : 1960 SEX: F STUDY DATE/TIME: 08/29/2016 11:00 UNIT: SED ROOM: STUDY DESCRIPTION: CT Angio Chest for PE Attending Physician: Remy Burnette M.D. Ordering Physician: Remy Burnette M.D. Primary Care Physician: Royer Clarke M.D. MEDICAL IMAGING REPORT This report is preliminary unless electronic signature is present. EXAM Chest CT with contrast with CT angiography. HISTORY Right upper quadrant abdominal pain with back and chest pain onset early this morning. TECHNIQUE Axial imaging was obtained through the chest with contrast. 80 mL of Isovue was used. CT angiography was performed with thick sliding MIPs in the sagittal and coronal projections. This CT exam was performed with one or more of the following radiation dose reduction techniques: Automatic exposure control, adjustment of mA and/or kV according to patient size, and iterative reconstruction. FINDINGS Chest images at mediastinal window show no pulmonary artery filling defects to suggest emboli. There are no enlarged mediastinal or hilar lymph nodes. No evidence of aortic dissection. The CT angiographic images also show no evidence of emboli. Lung window imaging shows small blebs at the right apex. Mild linear scarring or plate-like atelectasis is seen in the left lower lobe. IMPRESSION No evidence of pulmonary embolism. No acute findings in the chest. Small blebs are seen at the right apex. Mild basilar fibrosis or atelectasis is noted. Dictated by... Zachary Rodrigues M.D. [facility] A Service [facility] RADIOLOGY TEXT RESULTS PATIENT: IMELDA RODRIGUES LOCATION: [facility]1-01 : 60 UNIT #: [id number] AGE: [address]: Medina Weldon MD SEX: F ORDER DR: THIS IS AN ELECTRONICALLY VERIFIED REPORT Zachary Rodrigues M.D. at 08/30/2016 10:30 AM CHIDI/joyce TD: 08/29/2016 13:32 JOB #: [id number] MEDICAL IMAGING REPORT Page 1 of 1
--- NOTE | ~2016-08-29 | OR ---
Unit #: [id number] #: [id number] Patient: IMELDA RODRIGUES [id number] [place] [id number] [facility]. [place], [place] [address] [id number] MR#: [id number] NAME: IMELDA RODRIGUES. ROOM: 571 Date of Procedure: 08/30/2016 Admission Date: 08/29/2016 Surgeon: Ross Coronel M.D. : 1960 Attending Physician: Medina Weldon M.D. Primary Care Physician: Royer Clarke M.D. OPERATIVE REPORT PROCEDURES PERFORMED Esophagogastroduodenoscopy to distal duodenum, endoscopic retrograde cholangiopancreatography with sphincterotomy, balloon dilatation and stenting of both common bile duct and PD, lithotripsy of common bile duct stones, balloon extraction. INDICATIONS FOR PROCEDURE The patient presented with multiple stones in the common bile duct and obstructive jaundice and acute biliary colic. MEDICATIONS Monitored anesthesia. POSTOPERATIVE FINDINGS 1. EGD exam shows mild esophagitis and small hiatal hernia. 2. Stomach, duodenum, and distal duodenum was normal. 3. ERCP shows. a. Normal pancreatic duct. b. Significantly dilated biliary duct up to 20 mm with entirely filled up with large stones. 4. Sphincterotomy was first performed. 5. Balloon dilatation of the ampulla was then carried out with an 8 mm 4 cm balloon. 6. Balloon extraction was tried. Several small stones were extracted; however, the large stones were getting stuck. 7. At this point, we used a lithotripter and crushed multiple stones. 8. Balloon extraction was then carried out again and multiple large stones and debris was extracted. Few stones were still left. 9. CBD was stented with a 7-Malagasy, 10 cm stent. 10. PD was stented with 5 x 5 Delacruz. PLAN Laparoscopic cholecystectomy per LSA. We will repeat ERCP after 4 to 6 weeks. Removal of rest of the stones and stenting. DESCRIPTION OF PROCEDURE The patient was explained of the procedure, risks, and benefits, risk of pancreatitis was discussed in detail. She was brought to the endoscopy room, laid in the prone position. An EGD was done first. Scope was passed down the mouth into the esophagus, stomach, duodenum, and distal duodenum. Gently, I pulled it out. She tolerated it well. Unit #: [id number] #: [id number] Patient: IMELDA RODRIGUES At this time, side-viewing ERCP scope was passed down the mouth into esophagus, stomach, duodenum. Ampulla was visualized. There was a large intraduodenal part of the ampulla. After few attempts, I was able to cannulate the pancreatic duct leaving the wire in the pancreas. I stented the common bile duct. Detail of the procedure have been described above. Multiple stones were removed after dilation and lithotripsy. Stent was then placed in the common bile duct. A 5 x 5 Delacruz were placed in the pancreatic duct also in order to avoid any pancreatitis. The stomach was decompressed. The scope was gently pulled out. She tolerated it well. Dictated by... Gemini Butterfield/yadi TD: 08/30/2016 17:56 JOB #: [id number] OPERATIVE REPORT Page 1 of 1 X Ross Coronel MD X PROCEDURE OPERATIVE NOTE
[2016-08-29 09:44] LABS: BASOPHIL# 0.1 X10e3 (0-0.3); EOSINOPHIL# 0.1 X10e3 (0-0.7); EOSINOPHIL% 1.1 % (0.0-7.0); HEMATOCRIT 41.9 % (35.0-45.0); HEMOGLOBIN 14.2 gm/dL (12.0-16.0); LYMPHOCYTE# 2.5 X10e3 (1.0-3.5); LYMPHOCYTE% 26.2 % (17.0-45.0); MEAN CELL VOLUME 91.7 FL (83-96); MEAN CORPUSCULAR HGB CONC 33.8 g/dL (30-36); MEAN PLATELET VOLUME 8.8 FL (6.5-11.5); MONOCYTE# 0.6 X10e3 (0-1.0); MONOCYTE% 6.2 % (3.0-12.0); NEUTROPHIL# 6.3 X10e3 (1.5-7.1); NEUTROPHIL% 65.5 % (40-75); PLATELET COUNT 256 X10e3 (140-420); RED BLOOD COUNT 4.57 X10e (3.90-5.30); RED CELL DISTRIBUTION WIDTH 13.6 % (11.0-15.5); WHITE BLOOD COUNT 9.6 X10e3 (4.0-10.5)
[2016-08-29 09:45] LABS: DIFF IND NO
[2016-08-29 09:57] LABS: POC - CKMB 1.4 ng/mL (0.0-7.9); POC - TROPONIN <0.05 ng/mL (<=0.05)
[2016-08-29 10:02] LABS: ALBUMIN SERUM 4.2 g/dL (3.5-5.0); BILIRUBIN, DIRECT 0.3 mg/dL (0.0-0.2); BILIRUBIN,INDIRECT 0.5 mg/dL (0.0-0.9); BILIRUBIN,TOTAL 0.8 mg/dL (0.2-2.0); BUN/CREATININE RATIO 8.18; CALCIUM SERUM 8.7 mg/dL (8.4-10.2); CREATININE SERUM 1.1 mg/dL (0.6-1.4); GLOM FILT RATE Estimated 56.5 mL/min (>60); PROTEIN TOTAL SERUM 7.2 g/dL (6.0-8.3)
[2016-08-29 10:45] LABS: URINE SOURCE CLEAN CATCH
[2016-08-29 10:47] LABS: URINE APPEARANCE CLEAR; URINE BILIRUBIN NEG (NEG); URINE BLOOD 1+ (NEG); URINE COLOR YELLOW; URINE GLUCOSE NEG (NORM); URINE KETONE TRACE (NEG); URINE LEUKOCYTE ESTERASE 2+ (NEG); URINE NITRATE NEG (NEG); URINE PH 6.5 (5-8); URINE PROTEIN NEG (NEG)
[2016-08-29 10:54] LABS: MICRO INDICATED? YES
[2016-08-29 11:08] LABS: CULTURE INDICATED? YES; URINE BACTERIA 1+ (NEG); URINE RBC 0-2 /[HPF] (0-2); URINE SQUAMOUS EPITHELIAL CELL FEW /[HPF]
[2016-08-30 06:12] LABS: BASOPHIL# 0.1 X10e3 (0-0.3); BASOPHIL% 1.3 % (0-2.5); EOSINOPHIL# 0.1 X10e3 (0-0.7); EOSINOPHIL% 2.8 % (0.0-7.0); HEMATOCRIT 39.3 % (35.0-45.0); HEMOGLOBIN 12.9 gm/dL (12.0-16.0); LYMPHOCYTE# 1.6 X10e3 (1.0-3.5); LYMPHOCYTE% 29.8 % (17.0-45.0); MEAN CELL VOLUME 92.8 FL (83-96); MEAN CORPUSCULAR HEMOGLOBIN 30.5 PG (28-34); MEAN CORPUSCULAR HGB CONC 32.9 g/dL (30-36); MONOCYTE# 0.6 X10e3 (0-1.0); MONOCYTE% 10.6 % (3.0-12.0); NEUTROPHIL% 55.5 % (40-75); PLATELET COUNT 197 X10e3 (140-420); RED BLOOD COUNT 4.23 X10e (3.90-5.30); RED CELL DISTRIBUTION WIDTH 14.1 % (11.0-15.5); WHITE BLOOD COUNT 5.3 X10e3 (4.0-10.5)
[2016-08-30 06:16] LABS: DIFF IND NO
[2016-08-30 06:24] LABS: PARTIAL THROMBOPLASTIN TIME 23.3 SECONDS (23.5-31.3)
[2016-08-30 07:27] LABS: ALBUMIN SERUM 3.3 g/dL (3.5-5.0); BILIRUBIN,TOTAL 0.7 mg/dL (0.2-2.0); BUN/CREATININE RATIO 14.28; CALCIUM SERUM 8.7 mg/dL (8.4-10.2); CREATININE SERUM 0.7 mg/dL (0.6-1.4); GLOM FILT RATE Estimated 97.5 mL/min (>60); POTASSIUM 4.3 mmol/L (3.5-5.1); PROTEIN TOTAL SERUM 5.7 g/dL (6.0-8.3)
[2016-08-31 05:49] LABS: HEMOGLOBIN 13.1 gm/dL (12.0-16.0); MEAN CELL VOLUME 91.7 FL (83-96); MEAN CORPUSCULAR HEMOGLOBIN 30.1 PG (28-34); MEAN CORPUSCULAR HGB CONC 32.8 g/dL (30-36); MEAN PLATELET VOLUME 8.7 FL (6.5-11.5); RED BLOOD COUNT 4.36 X10e (3.90-5.30); RED CELL DISTRIBUTION WIDTH 14.2 % (11.0-15.5)
[2016-08-31 06:01] LABS: WHITE BLOOD COUNT 9.1 X10e3 (4.0-10.5)
[2016-08-31 06:56] LABS: ALBUMIN SERUM 3.6 g/dL (3.5-5.0); BILIRUBIN,TOTAL 0.4 mg/dL (0.2-2.0); BUN/CREATININE RATIO 8.57; CALCIUM SERUM 8.9 mg/dL (8.4-10.2); CREATININE SERUM 0.7 mg/dL (0.6-1.4); GLOM FILT RATE Estimated 97.5 mL/min (>60); POTASSIUM 4.1 mmol/L (3.5-5.1); PROTEIN TOTAL SERUM 6.6 g/dL (6.0-8.3)
[2016-09-01 07:27] LABS: HEMATOCRIT 39.1 % (35.0-45.0); HEMOGLOBIN 12.6 gm/dL (12.0-16.0); MEAN CELL VOLUME 93.5 FL (83-96); MEAN CORPUSCULAR HEMOGLOBIN 30.1 PG (28-34); MEAN CORPUSCULAR HGB CONC 32.2 g/dL (30-36); MEAN PLATELET VOLUME 8.7 FL (6.5-11.5); RED BLOOD COUNT 4.18 X10e (3.90-5.30); RED CELL DISTRIBUTION WIDTH 13.7 % (11.0-15.5); WHITE BLOOD COUNT 9.3 X10e3 (4.0-10.5)
[2016-09-01 07:53] LABS: ALBUMIN SERUM 3.4 g/dL (3.5-5.0); ALKALINE PHOSPHATASE 229 U/L (32-92); ALT (SGPT) 134 U/L (10-40); AMYLASE 299 U/L (0-46); AST (SGOT) 33 U/L (10-42); BILIRUBIN,TOTAL <0.1 mg/dL (0.2-2.0); BLOOD UREA NITROGEN <5 mg/dL (9-23); BUN/CREATININE RATIO 8.33; CALCIUM SERUM 8.4 mg/dL (8.4-10.2); CARBON DIOXIDE 25 mmol/L (22-31); CHLORIDE 104 mmol/L (100-111); CREATININE SERUM 0.6 mg/dL (0.6-1.4); GLOM FILT RATE Estimated 102.6 mL/min (>60); GLUCOSE FASTING 109 mg/dL (70-110); LIPASE 294 U/L (22-51); POTASSIUM 4.2 mmol/L (3.5-5.1); PROTEIN TOTAL SERUM 5.8 g/dL (6.0-8.3); SODIUM 140 mmol/L (135-145)
[2016-09-01] MEDS ORDERED: OMNICEF300 MG PO (12:03)
[2016-09-01] MEDS ORDERED: LORTAB 5-325 M1 EACH PO (12:04)
[2016-09-01] MEDS ORDERED: ASPIRIN81 M2 PO (12:04)
[2016-09-01] MEDS ORDERED: METOPROLOL TAR25 MG PO (12:05)
== END 2016-09-01 15:28 | disposition home or self-care (01) | DRG 417 ==
LOC: SED 08:56 → C5C 12:20 → CEDOF 12:20 → C5C 19:49 → CEDOF 20:40 → C5C 20:40
PROVIDERS: Emergency Medicine; Internal Medicine; Surgery
PROC: 0FC98ZZ Extirpation of Matter from Common Bile Duct, Via Natural or Artificial Opening Endoscopic (ICD-10-PCS; 2016-08-30 10:56)
PROC: 0F7D8DZ Dilation of Pancreatic Duct with Intraluminal Device, Via Natural or Artificial Opening Endoscopic (ICD-10-PCS; 2016-08-30 10:56)
PROC: 0F798DZ Dilation of Common Bile Duct with Intraluminal Device, Via Natural or Artificial Opening Endoscopic (ICD-10-PCS; 2016-08-30 10:56)
PROC: 0DJ08ZZ Inspection of Upper Intestinal Tract, Via Natural or Artificial Opening Endoscopic (ICD-10-PCS; 2016-08-30 10:56)
PROC: B24BZZZ Ultrasonography of Heart with Aorta (ICD-10-PCS; 2016-08-30 10:56)
PROC: 0FT44ZZ Resection of Gallbladder, Percutaneous Endoscopic Approach (ICD-10-PCS; principal; 2016-08-31 08:30)
DX: K80.43 Calculus of bile duct with acute cholecystitis with obstruction (principal); K85.90 Acute pancreatitis without necrosis or infection, unspecified; N39.0 Urinary tract infection, site not specified; E11.9 Type 2 diabetes mellitus without complications; I10 Essential (primary) hypertension; B96.20 Unspecified Escherichia coli [E. coli] as the cause of diseases classified elsewhere; I25.119 Atherosclerotic heart disease of native coronary artery with unspecified angina pectoris; Z79.84 Long term (current) use of oral hypoglycemic drugs; J44.9 Chronic obstructive pulmonary disease, unspecified; E78.5 Hyperlipidemia, unspecified; F41.9 Anxiety disorder, unspecified; F32.9 Major depressive disorder, single episode, unspecified; K20.9 Esophagitis, unspecified; K44.9 Diaphragmatic hernia without obstruction or gangrene; K83.8 Other specified diseases of biliary tract; Z90.710 Acquired absence of both cervix and uterus; F17.210 Nicotine dependence, cigarettes, uncomplicated; K21.9 Gastro-esophageal reflux disease without esophagitis; K82.8 Other specified diseases of gallbladder
CPT/HCPCS: 36415; 71275; 74176; 74330; 76705; 80048; 80053; 80076; 81003; 82150; 82553; 82947; 83690; 84484; 85025; 85027; 85379; 85610; 85730; 87086; 87186; 88304; 93005; 93306; 96361; 96365; 96375; 99285; J0330; J1170; J1610; J1815; J1885; J2250; J2405; J2543; J2710; J3010; Q9967

== ENCOUNTER 2016-10-04 08:47 | Inpatient (IN) | payer OTHER ==
[~2016-10-04] VITALS: Ht 170.2 cm; Wt 85.0 kg
--- NOTE | ~2016-10-04 | OR ---
Unit #: [id number] #: [id number] Patient: IMELDA RODRIGUES [id number] [address] [place] [id number] Juliana MR#: [id number] NAME: IMELDA RODRIGUES ROOM: 242 Date of Procedure: 10/04/2016 Admission Date: 10/04/2016 Surgeon: Ross Coronel M.D. : 1960 Attending Physician: Ross Coronel M.D. Referring Physician: Ross Coronel M.D. Primary Care Physician: Royer Clarke M.D. OPERATIVE REPORT PROCEDURE PERFORMED 1. Endoscopic retrograde cholangiopancreatography with stent removal from pancreatic duct and common bile duct, endoscopic retrograde cholangiopancreatography with extension of sphincterotomy, endoscopic retrograde cholangiopancreatography with balloon dilation of the ampulla by 8 mm x 4 cm dilation balloon. 2. Lithotripsy for multiple over 1 cm stones. 3. Balloon extraction of the large amount of stones as well as some sludge multiple times. 4. Small stones could be still left behind. 5. 10 x 10 CBD stent was placed. 6. Limited EGD was within normal limits. PLAN The patient to be kept in observation for 24 hours in the hospital. We will continue with symptomatic control. DESCRIPTION OF PROCEDURE The patient was explained of the procedure, risks, and benefits along with risks and benefits of anesthesia. Risk of pancreatitis was discussed in detail. She was brought to the endoscopy room and laid in the prone position. Monitored anesthesia was given. The scope was passed down the mouth into the esophagus, stomach. Two stents were seen extending out of the ampulla. Both were removed in one piece under fluoroscopic and endoscopic guidance. Bile duct was then cannulated. Multiple filling defects were seen, filling almost the entire duct. Possible spillover from gallbladder at the time of cholecystectomy. At this point, we extended the sphincterotomy at 12 o'clock position. Balloon dilation was then carried out of the ampulla with 8 mm x 4 cm balloon. I then used a balloon extraction 9 x 12 and multiple stones were extracted. Few stones were seen still which were very large. At this point, we used a lithotriptor and crushed several stones that were over a 1 cm in size. Balloon extraction was then carried out again. At this point, we placed a 10 x 10 stent into the pancreatic duct. C-arm was getting heated up at this point and we had to stopped the procedure. Attempt was made to extend the pancreatic duct; however, could not be done. The scope was at this time pulled out. Decompression of the stomach was carried out. She tolerated the procedure well. No major complications seen. Dictated by... Unit #: [id number] #: [id number] Patient: IMELDA RODRIGUES M.D. SKJ/yadi TD: 10/04/2016 17:15 JOB #: [id number] OPERATIVE REPORT Page 1 of 1 X Ross Coronel MD X PROCEDURE OPERATIVE NOTE
[~2016-10-04 08:47] MED LIST changes: +ASPIRIN81 M2 PO; +LORTAB 5-325 M1 EACH PO; +METOPROLOL TAR25 MG PO; +OMNICEF300 MG PO
[2016-10-04 14:14] LABS: BASOPHIL# 0.1 X10e3 (0-0.3); BASOPHIL% 0.5 % (0-2.5); EOSINOPHIL# 0.2 X10e3 (0-0.7); EOSINOPHIL% 1.7 % (0.0-7.0); HEMATOCRIT 42.1 % (35.0-45.0); HEMOGLOBIN 14.1 gm/dL (12.0-16.0); LYMPHOCYTE# 1.8 X10e3 (1.0-3.5); LYMPHOCYTE% 13.8 % (17.0-45.0); MEAN CELL VOLUME 92.3 FL (83-96); MEAN CORPUSCULAR HEMOGLOBIN 30.9 PG (28-34); MEAN CORPUSCULAR HGB CONC 33.5 g/dL (30-36); MONOCYTE# 0.5 X10e3 (0-1.0); NEUTROPHIL# 10.3 X10e3 (1.5-7.1); PLATELET COUNT 209 X10e3 (140-420); RED BLOOD COUNT 4.56 X10e (3.90-5.30); RED CELL DISTRIBUTION WIDTH 14.7 % (11.0-15.5); WHITE BLOOD COUNT 12.8 X10e3 (4.0-10.5)
[2016-10-04 14:18] LABS: DIFF IND NO
[2016-10-04 15:45] LABS: ALBUMIN SERUM 4.3 g/dL (3.5-5.0); BUN/CREATININE RATIO 17.14; CREATININE SERUM 0.7 mg/dL (0.6-1.4); GLOM FILT RATE Estimated 97.5 mL/min (>60); POTASSIUM 3.9 mmol/L (3.5-5.1); PROTEIN TOTAL SERUM 7.5 g/dL (6.0-8.3)
[2016-10-05 06:52] LABS: HEMATOCRIT 38.7 % (35.0-45.0); HEMOGLOBIN 12.7 gm/dL (12.0-16.0); MEAN CELL VOLUME 92.1 FL (83-96); MEAN CORPUSCULAR HEMOGLOBIN 30.3 PG (28-34); MEAN CORPUSCULAR HGB CONC 32.9 g/dL (30-36); MEAN PLATELET VOLUME 8.6 FL (6.5-11.5); RED BLOOD COUNT 4.2 X10e (3.90-5.30); RED CELL DISTRIBUTION WIDTH 14.5 % (11.0-15.5); WHITE BLOOD COUNT 7.1 X10e3 (4.0-10.5)
[2016-10-05 07:27] LABS: ALBUMIN SERUM 3.3 g/dL (3.5-5.0); BILIRUBIN,TOTAL 0.5 mg/dL (0.2-2.0); BUN/CREATININE RATIO 15.71; CALCIUM SERUM 8.4 mg/dL (8.4-10.2); CREATININE SERUM 0.7 mg/dL (0.6-1.4); GLOM FILT RATE Estimated 97.5 mL/min (>60); POTASSIUM 3.9 mmol/L (3.5-5.1); PROTEIN TOTAL SERUM 6.1 g/dL (6.0-8.3)
[2016-10-06 04:48] LABS: HEMATOCRIT 37.4 % (35.0-45.0); HEMOGLOBIN 12.6 gm/dL (12.0-16.0); MEAN CELL VOLUME 91.6 FL (83-96); MEAN CORPUSCULAR HEMOGLOBIN 30.9 PG (28-34); MEAN CORPUSCULAR HGB CONC 33.7 g/dL (30-36); RED BLOOD COUNT 4.08 X10e (3.90-5.30); RED CELL DISTRIBUTION WIDTH 14.2 % (11.0-15.5); WHITE BLOOD COUNT 6.3 X10e3 (4.0-10.5)
[2016-10-06 05:19] LABS: ALBUMIN SERUM 3.4 g/dL (3.5-5.0); BILIRUBIN,TOTAL 0.9 mg/dL (0.2-2.0); BUN/CREATININE RATIO 13.33; CALCIUM SERUM 8.6 mg/dL (8.4-10.2); CREATININE SERUM 0.6 mg/dL (0.6-1.4); GLOM FILT RATE Estimated 102.6 mL/min (>60); POTASSIUM 4.1 mmol/L (3.5-5.1); PROTEIN TOTAL SERUM 6.3 g/dL (6.0-8.3)
== END 2016-10-06 13:41 | disposition home or self-care (01) | DRG 446 ==
LOC: COPS 08:47 → CPACUOF 13:25 → C2A 13:25
PROVIDERS: Internal Medicine
PROC: 0FC98ZZ Extirpation of Matter from Common Bile Duct, Via Natural or Artificial Opening Endoscopic (ICD-10-PCS; principal; 2016-10-04 10:30)
PROC: 0FPD8DZ Removal of Intraluminal Device from Pancreatic Duct, Via Natural or Artificial Opening Endoscopic (ICD-10-PCS; 2016-10-04 10:30)
PROC: 0F798DZ Dilation of Common Bile Duct with Intraluminal Device, Via Natural or Artificial Opening Endoscopic (ICD-10-PCS; 2016-10-04 10:30)
PROC: 0FPB8DZ Removal of Intraluminal Device from Hepatobiliary Duct, Via Natural or Artificial Opening Endoscopic (ICD-10-PCS; 2016-10-04 10:30)
PROC: 0FCC8ZZ Extirpation of Matter from Ampulla of Vater, Via Natural or Artificial Opening Endoscopic (ICD-10-PCS; 2016-10-04 10:30)
DX: K80.50 Calculus of bile duct without cholangitis or cholecystitis without obstruction (principal); I10 Essential (primary) hypertension; E11.9 Type 2 diabetes mellitus without complications; I25.10 Atherosclerotic heart disease of native coronary artery without angina pectoris; Z79.84 Long term (current) use of oral hypoglycemic drugs; F17.200 Nicotine dependence, unspecified, uncomplicated; K83.8 Other specified diseases of biliary tract
CPT/HCPCS: 74330; 80053; 82150; 82947; 83690; 85025; 85027; J0295; J1610; J1650; J2250; J2270; J3010